=== PATIENT | female | born 1980 | race Caucasian/White ===

== ENCOUNTER 2017-03-27 13:19 | Emergency (ER) | payer OTHER ==
[2017-03-27 13:30] VITALS: BP 132/86; PULSE 115; RESP 18; TEMP 98; O2SAT 99
[2017-03-27 14:05] LABS: VENOUS BLOOD GAS PCO2 42 mmHg (40-60); VENOUS BLOOD GAS PO2 23 mm/Hg (30-55)
--- NOTE | 2017-03-27 14:05 | ED PDOC ---
HPI: General Adult Time Seen by Provider: 03/27/17 13:48 Chief Complaint (Nursing): Medical Clearance Chief Complaint (Provider): Medical Clearance History Per: Patient History/Exam Limitations: no limitations Onset/Duration Of Symptoms: Days (x1) Additional Complaint(s): 36 year old female with no past medical history, presents to the ER for evaluation after CO exposure, discovered today 1 hour prior to arrival. Patient was in the room where CO was detected. Patient states she feels fine and denies having any symptoms. PMD: Provider TBD Past Medical History Reviewed: Historical Data, Nursing Documentation, Vital Signs Vital Signs: Last Vital Signs Temp 98.0 F 03/27/17 13:28 Pulse 115 H 03/27/17 13:28 Resp 18 03/27/17 13:28 BP 132/86 03/27/17 13:28 Pulse Ox 99 03/27/17 15:10 - Medical History PMH: No Chronic Diseases - Family History Family History: States: Unknown Family Hx - Allergies Allergies/Adverse Reactions: Allergies Allergy/AdvReac Type Severity Reaction Status Date / Time No Known Allergies Allergy Verified 03/27/17 13:28 Review of Systems ROS Statement: Except As Marked, All Systems Reviewed And Found Negative Constitutional: Negative for: Weakness Respiratory: Negative for: Shortness of Breath Gastrointestinal: Negative for: Nausea Neurological: Negative for: Headache, Dizziness Physical Exam - Reviewed Nursing Documentation Reviewed: Yes Vital Signs Reviewed: Yes - Physical Exam Appears: Positive for: Non-toxic, No Acute Distress Head Exam: Positive for: ATRAUMATIC, NORMAL INSPECTION, NORMOCEPHALIC Skin: Positive for: Normal Color Eye Exam: Positive for: Normal appearance Neck: Positive for: Normal Cardiovascular/Chest: Positive for: Regular Rate, Rhythm Respiratory: Negative for: Respiratory Distress Extremity: Positive for: Normal ROM Neurologic/Psych: Positive for: Alert, Oriented (x 3), Gait (steady), Other ( speech is clear). Negative for: Motor/Sensory Deficits - ECG O2 Sat by Pulse Oximetry: 99 (RA) Pulse Ox Interpretation: Normal Medical Decision Making Medical Decision Making: Initial CO-oximetry used to screen patients. Patient offered VBG with ABG carboxyhemoglobin analysis to confirm. CO was borderline in triage. Will obtain VBG to confirm. Patient receiving 100% oxygen via non-rebreather. Time: 13:50 Initial Plan: --VBG Results reviewed: ABG Carboxyhemoglobin is 3.3. Time: 14:45 Repeat CO = 2, as documented by RN. Patient continues to be asymptomatic. Patient is stable for discharge home. Counseled regarding CO exposure and advised to return if any changes develop. Scribe Attestation: Documented by Barbara García, acting as a scribe for Nicol Mejias PA-C Provider Scribe Attestation: All medical record entries made by the Scribe were at my direction and personally dictated by me. I have reviewed the chart and agree that the record accurately reflects my personal performance of the history, physical exam, medical decision making, and the department course for this patient. I have also personally directed, reviewed, and agree with the discharge instructions and disposition. Disposition - Clinical Impression Clinical Impression: Carbon monoxide exposure - Patient ED Disposition Is Patient to be Admitted: No Counseled Patient/Family Regarding: Studies Performed, Diagnosis, Need For Followup - Disposition Disposition: Routine/Home Disposition Time: 14:40 Condition: FAIR Instructions: Carbon Monoxide Poisoning (ED) Forms: [employer] ([place])
== END 2017-03-27 15:17 | disposition home or self-care (01) ==
LOC: H.ER 13:19
DX: T58.91XA Toxic effect of carbon monoxide from unspecified source, accidental (unintentional), initial encounter (principal); Y99.0 Civilian activity done for income or pay